=== PATIENT | female | born 1950 | race Caucasian/White ===

== ENCOUNTER → 2018-01-03 | Outpatient (CLI) | payer MEDICARE | LOC: LAB SHORT 09:39 → LAB EV 09:39 | DX: R10.32 Left lower quadrant pain (principal) | CPT/HCPCS: 87086 ==

== ENCOUNTER 2019-02-07 06:41 | Day surgery (SDC) | payer MEDICARE ==
[~2019-02-07] VITALS: Ht 157.5 cm; Wt 60.5 kg
[~2019-02-07 06:41] MED LIST: ATOR40TA PO; Aspirin EC81 MG PO; LEVO-T100 MCG PO; Prilosec Otc20 MG PO; Prinivil10 MG PO; VITAMIN D35000 UNIT PO
--- NOTE | 2019-02-07 10:25 | NUR ---
02/07/19 1025 Domonique Ha 10ML ORISE & 4ML [place] USED FOR POLYP REMOVALS.
--- NOTE | 2019-02-07 10:37 | NUR ---
02/07/19 Jolie Carrlilo DELAYED ENTRY PT STATES SHE IS FREEZING, AND BEGAN TO SHIVER. PT PINK, WARM AND DRY TO TOUCH. TWO WARM BLANKETS PROVIDED. PT STATES BLANKETS HELPED AND DENIES NEEDS AT THIS TIME. DR. GILLETTE INTO ROOM TO SPEAK WITH PATIENT AND SPOUSE, ANA. PRESCRIBED LIQUID DIET FOR TWO DAYS, WITH SOLIDS BEGINNING ON MONDAY MORNING IF PATIENT IS FEELING WELL. PT TEARFUL AND UPSET, CRYING THAT SHE IS UNABLE TO EAT UNTIL MONDAY. PT REASSURED AND EDUCATED ON NEED FOR LIQUID DIET. PT AND SPOUSE ASKED QUESTIONS ABOUT LIQUID DIET, THIS NURSE CLARIFIED. PT CALMED. PEPSI PROVIDED TO PATIENT PER REQUEST; PT ELATED, SMILING AND CONTINUOUSLY THANKING THIS NURSE FOR PEPSI. DISCHARGE INSTRUCTIONS, WRITTEN AND VERBAL, PROVIDED AGAIN. PT AND SPOUSE VERBALIZE UNDERSTANDING. PT STATES SHE IS EAGER TO GO HOME. PT AND SPOUSE DENY FURTHER NEEDS. PATIENT LIAISON TO ESCORT PATIENT AND SPOUSE TO VEHICLE.
== END 2019-02-07 10:01 | disposition home or self-care (01) ==
LOC: ORSCSDS 06:41
PROVIDERS: Student in an Organized Health Care Education/Training Program
PROC: 0DBH8ZX Excision of Cecum, Via Natural or Artificial Opening Endoscopic, Diagnostic (ICD-10-PCS; principal; 2019-02-07 08:00)
PROC: 0DBK8ZX Excision of Ascending Colon, Via Natural or Artificial Opening Endoscopic, Diagnostic (ICD-10-PCS; principal; 2019-02-07 08:00)
PROC: 0DBL8ZX Excision of Transverse Colon, Via Natural or Artificial Opening Endoscopic, Diagnostic (ICD-10-PCS; principal; 2019-02-07 08:00)
PROC: 0DBP8ZX Excision of Rectum, Via Natural or Artificial Opening Endoscopic, Diagnostic (ICD-10-PCS; principal; 2019-02-07 08:00)
DX: K57.30 Diverticulosis of large intestine without perforation or abscess without bleeding (principal); D12.3 Benign neoplasm of transverse colon; D12.0 Benign neoplasm of cecum; D12.2 Benign neoplasm of ascending colon; K62.1 Rectal polyp; K64.8 Other hemorrhoids; K64.4 Residual hemorrhoidal skin tags; E03.9 Hypothyroidism, unspecified; I10 Essential (primary) hypertension; E78.5 Hyperlipidemia, unspecified; Z79.899 Other long term (current) drug therapy
CPT/HCPCS: 88305; J0330; J0461; J2405; J2704; J7120

== ENCOUNTER 2019-07-01 11:39 | Day surgery (SDC) | payer MEDICARE ==
[~2019-07-01] VITALS: Ht 154.9 cm; Wt 61.2 kg
== END 2019-07-01 15:10 | disposition home or self-care (01) ==
LOC: ORSCSDS 11:39
PROVIDERS: Student in an Organized Health Care Education/Training Program
PROC: 0DJD8ZZ Inspection of Lower Intestinal Tract, Via Natural or Artificial Opening Endoscopic (ICD-10-PCS; principal; 2019-07-01 13:30)
DX: Z12.11 Encounter for screening for malignant neoplasm of colon (principal); Z86.010 Personal history of colon polyps; K57.30 Diverticulosis of large intestine without perforation or abscess without bleeding; K64.4 Residual hemorrhoidal skin tags; K64.8 Other hemorrhoids; I10 Essential (primary) hypertension
CPT/HCPCS: J2704; J7120

== ENCOUNTER → 2021-12-09 | Outpatient (CLI) | payer MEDICARE | END | disposition home or self-care (01) | LOC: LAB SHORT 14:52 → PLD 14:52 | DX: K11.8 Other diseases of salivary glands (principal) | CPT/HCPCS: 88173 ==

== ENCOUNTER 2022-02-09 07:40 | Day surgery (SDC) | payer MEDICARE ==
[~2022-02-09] VITALS: Ht 157.5 cm; Wt 66.0 kg
--- NOTE | 2022-02-09 09:57 | NUR ---
02/09/22 0957 Hallie Oliveira HAIR CLIPPED BY DR. DIALLO PRIOR TO STARTING PREP.
--- NOTE | 2022-02-09 12:18 | NUR ---
02/09/22 1218 CHAPIS OLIVEIRA PT APPEARS MORE COMFROTABLE AFTER FENTANYL DOSE
== END 2022-02-09 13:09 | disposition home or self-care (01) ==
LOC: ORSCSDS 07:40
PROVIDERS: Otolaryngology
PROC: 0CB80ZZ Excision of Right Parotid Gland, Open Approach (ICD-10-PCS; principal; 2022-02-09 09:00)
DX: K11.8 Other diseases of salivary glands (principal); I10 Essential (primary) hypertension; Z87.891 Personal history of nicotine dependence; E03.9 Hypothyroidism, unspecified; E78.00 Pure hypercholesterolemia, unspecified; Z79.82 Long term (current) use of aspirin; Z79.899 Other long term (current) drug therapy
CPT/HCPCS: 88307; A9270; J0171; J1100; J2250; J2370; J2405; J2704; J3010; J7120

== ENCOUNTER → 2022-08-05 | Outpatient (CLI) | payer MEDICARE | LOC: LAB SHORT 13:20 → LAB 13:20 | DX: N39.0 Urinary tract infection, site not specified (principal) | CPT/HCPCS: 87086 ==

== ENCOUNTER → 2022-08-18 | Outpatient (CLI) | payer MEDICARE | LOC: LAB 09:00 → LAB SHORT 09:00 | DX: N39.0 Urinary tract infection, site not specified (principal) | CPT/HCPCS: 87077; 87086; 87186 ==

== ENCOUNTER → 2023-01-04 | Outpatient (CLI) | payer MEDICARE | END | disposition home or self-care (01) | LOC: LAB 12:25 → LAB SHORT 12:25 | DX: R30.0 Dysuria (principal) | CPT/HCPCS: 87086 ==